=== PATIENT | male | born 1960 ===

== ENCOUNTER 2018-04-26 06:58 | Emergency (ER) | payer OTHER ==
[~2018-04-26] VITALS: Ht 182.9 cm; Wt 113.4 kg
[2018-04-26] MEDS ORDERED: [UNRECOGNIZED DRUG - OTHER] (07:14)
[2018-04-26] MEDS ORDERED: NORVASC2.5 MG (07:14)
[2018-04-26] MEDS ORDERED: SIMVASTATIN20 MG (07:15)
[2018-04-26] MEDS ORDERED: JARDIANCE25 MG (07:16)
[2018-04-26] MEDS ORDERED: LEVOTHYROXINE150 MCG (07:17)
== END 2018-04-26 10:13 | disposition home or self-care (01) ==
LOC: ER 06:58 → EDBD 07:15 → ER 07:15
DX: M62.838 Other muscle spasm (principal)

== ENCOUNTER 2020-06-11 10:47 | Inpatient (IN) | payer OTHER ==
[~2020-06-11] VITALS: Ht 154.9 cm; Wt 113.4 kg
[~2020-06-11 10:47] MED LIST: JARDIANCE25 MG; LEVOTHYROXINE150 MCG; NORVASC2.5 MG; SIMVASTATIN20 MG; [UNRECOGNIZED DRUG - OTHER]
[2020-06-11] MEDS ORDERED: CANDESARTAN-HC1 EAC2 PO (10:59)
[2020-06-11] MEDS ORDERED: METFORMIN HCL1000 M3 PO (11:00)
[2020-06-11] MEDS ORDERED: ROSUVASTATIN CA20 MG PO (11:00)
[2020-06-11] MEDS ORDERED: VERAPAMIL ER240 MG PO (11:00)
[2020-06-11] MEDS ORDERED: DOXAZOSIN MESYLA4 MG PO (11:00)
[2020-06-11] MEDS ORDERED: TRULICITY1.5 MG/0.5 SQ (11:00)
[2020-06-11] MEDS ORDERED: LEVOXYL150 MCG PO (11:01)
--- NOTE | 2020-06-11 11:02 | NUR ---
SE RECIBE PACIENTE 59 YRS,ALERTA, ORIENTADO X 3 ESFERAS REFIERE ESTAR [place] RECTAL DESDE MIERCOLES, EL LUNES LE HICIEREN PROCEDIMIENTO DEL COLON. SE UBICA EN AREA DE OBSERVACION ESSENCE # [id number], A NIVEL MAS BAJO.
--- NOTE | 2020-06-11 12:28 | NUR ---
PACIENTE ALERTA Y ORIENTADO EN BURTON KINA ESFERAS, ES ORIENTADO SOBRE ORDENES MEDICAS, REFIERE ENTENDER. SE COLECTAN MUESTRAS DE LABORATORIO, SE CANALIZA VENA Y SE ADMINISTRA YAIR ORDENADO.
== END 2020-06-14 09:50 | disposition home or self-care (01) | DRG 379 ==
LOC: ER 10:47 → SURH 14:18
PROVIDERS: ADMIT Specialist; ATTEND Specialist
PROC: CW2 Nuclear Medicine, Anatomical Regions, Tomographic (Tomo) Nuclear Medicine Imaging (ICD-10-PCS; principal; 2020-06-13)
DX: K62.5 Hemorrhage of anus and rectum (principal); D64.9 Anemia, unspecified; E03.9 Hypothyroidism, unspecified; E11.9 Type 2 diabetes mellitus without complications; Z20.822 Contact with and (suspected) exposure to COVID-19; Z98.890 Other specified postprocedural states

== ENCOUNTER 2023-08-02 07:55 | Outpatient (CLI) | payer OTHER ==
[~2023-08-02 07:55] MED LIST changes: +CANDESARTAN-HC1 EAC2 PO; +DOXAZOSIN MESYLA4 MG PO; +LEVOXYL150 MCG PO; +METFORMIN HCL1000 M3 PO; +ROSUVASTATIN CA20 MG PO; +TRULICITY1.5 MG/0.5 SQ; +VERAPAMIL ER240 MG PO
== END 2023-08-02 08:16 | disposition home or self-care (01) ==
LOC: MRI 07:55
PROVIDERS: ATTEND Internal Medicine Gastroenterology
DX: M25.561 Pain in right knee (principal); M17.11 Unilateral primary osteoarthritis, right knee; M23.203 Derangement of unspecified medial meniscus due to old tear or injury, right knee; K92.1 Melena; K52.9 Noninfective gastroenteritis and colitis, unspecified; D12.3 Benign neoplasm of transverse colon; Z80.0 Family history of malignant neoplasm of digestive organs; Z88.2 Allergy status to sulfonamides
CPT/HCPCS: 73718